=== PATIENT | male | born 1995 ===

== ENCOUNTER 2017-07-05 19:15 | Emergency (ER) | payer OTHER ==
[2017-07-05 19:28] VITALS: BP 153/65
[2017-07-05] MEDS ORDERED: Lidocaine 2% VISCOUS* 15 ML UDC PO ONE (19:50)
--- NOTE | 2017-07-05 20:03 | UC ---
Eros Harper Nilda, scribed for Kyung Jeffries MD on 07/05/17 at 1947 . Throat Pain/Nasal Brennen HPI - HPI Summary HPI Summary: This patient is a 22 year old M presenting to [facility] to r/o strep throat. Patient reports cold symptoms that began 1 week ago but resolved. Yesterday he began to have a sore throat. The patient rates the pain 3/10 in severity. Symptoms aggravated by swallowing, and alleviated by OTC medications. Patient reports minor STEVENS, difficulty swallowing, ear pressure, cough, and sinus congestion. He denies fever, N/V, rash, and burning with urination. Recent sick contact with girlfriend who was just diagnosed with strep throat. No analgesia today. No drooling. + po Patients medication reviewed this visit. - History of Current Complaint Chief Complaint: UCGeneralIllness Stated Complaint: SORE THROAT Hx Obtained From: Patient Onset/Duration: Sudden Onset, Lasting Days, Still Present Severity: Mild Pain Intensity: 3 Pain Scale Used: 0-10 Numeric Cough: Nonproductive Associated Signs & Symptoms: Positive: Other - minor STEVENS, ear pressure, cough, and sinus congestion. He denies fever, N/V, rash, and burning with urination. - Allergies/Home Medications Allergies/Adverse Reactions: Allergies Allergy/AdvReac Type Severity Reaction Status Date / Time salmon Allergy Rash Uncoded 07/05/17 19:24 Home Medications: Home Medications Amphetamine-Dextroamphetamine [Adderall 10 mg-] 20 mg PO DAILY 07/05/17 [ History Confirmed 07/05/17] PMH/Surg Hx/FS Hx/Imm Hx Previously Healthy: Yes Psychological History: Anxiety, Other Other Psychological History: ADD - Surgical History Surgical History: None - Family History Known Family History: Positive: Cardiac Disease - Social History Occupation: Student Lives: Dormitory/Roommates Alcohol Use: Occasionally Substance Use Type: Marijuana Smoking Status (MU): Former Smoker Review of Systems Constitutional: Other - negative fever Skin: Other - negative rash ENT: Sore Throat, Ear Ache, Sinus Congestion, Other - difficulty swallowing Respiratory: Cough Gastrointestinal: Other - negative N/V Genitourinary: Other - negative burning with urination Neurological: Headache All Other Systems Reviewed And Are Negative: Yes Physical Exam Triage Information Reviewed: Yes Appearance: Well-Appearing, No Pain Distress, Well-Nourished Vital Signs: Initial Vital Signs Temp 98 F 07/05/17 19:25 Pulse 76 07/05/17 19:25 Resp 16 07/05/17 19:25 BP 153/65 07/05/17 19:25 Pulse Ox 100 07/05/17 19:25 Vital Signs Reviewed: Yes Eye Exam: Normal Eyes: Positive: Conjunctiva Clear. Negative: Discharge ENT: Positive: Tonsillar swelling. Negative: TMs normal - scant fluid left TM no erythema, no retraction turbinates inflammed and boggy + PND uvula midline mild erythema no exudate no erythema, Tonsillar exudate Dental Exam: Normal Neck exam: Normal Neck: Positive: Supple, Nontender. Negative: No Lymphadenopathy - mild submandibular LA R>L Respiratory Exam: Normal Respiratory: Positive: Chest non-tender, Lungs clear, Normal breath sounds, No respiratory distress, No accessory muscle use Cardiovascular Exam: Normal Cardiovascular: Positive: RRR, No Murmur, Pulses Normal Abdominal Exam: Normal Abdomen Description: Positive: Nontender, No Organomegaly, Soft Bowel Sounds: Positive: Present Musculoskeletal Exam: Normal Musculoskeletal: Positive: Strength Intact Neurological Exam: Normal Neurological: Positive: Alert Psychological Exam: Normal Psychological: Positive: Normal Response To Family Re-Evaluation - Re-Evaluation First Eval Re-Evaluation Time: 20:01 Change: Improved - Pt accepting Rx lidocaine discussed secretion precaution gargle spit apap/motrin Throat Pain/Nasal Course/Dx - Course Assessment/Plan: This patient is a 22 year old M presenting to [facility] to r/o strep throat. Patient reports cold symptoms that began 1 week ago but resolved. Yesterday he began to have a sore throat. The patient rates the pain 3/10 in severity. Symptoms aggravated by swallowing, and alleviated by OTC medications. Patient reports minor STEVENS, difficulty swallowing, ear pressure, cough, and sinus congestion. He denies fever, N/V, rash, and burning with urination. Recent sick contact with girlfriend who was just diagnosed with strep throat. Patients medication reviewed this visit. + strep test. Pt given viscous lidocaine in UC. Pt is stable and will be D/C with a prescription for azithromycin and a diagnosis of strep throat. - Differential Dx/Diagnosis Provider Diagnoses: strep pharyngitis Discharge - Discharge Plan Condition: Stable Disposition: HOME Prescriptions: Azithromycin TAB* [Zithromax TAB (Z-ALEX) 250 mg #6 tabs] 2 tab PO .TODAY, THEN 1 DAILY #1 alex Lidocaine 2% VISCOUS* 10 ml MT Q6HR PRN #[id number] btl PRN Reason: throat pain Patient Education Materials: Strep Throat (ED) [facility] Additional Instructions: - Stay well hydrated. Drink plenty of non-alcoholic, non-caffinated beverages. - Gargle with warm, salt water 2-3 times a day -Take antibiotics as prescribed until gone -Cold beverages may be soothing to your throat - popsicles, apple sauce, jello - After you have been on antibiotics for 2 days - change your toothbrush and your pillowcase. These infections are spread by secretions - do NOT share eating or drinking utensils - clean items you share with other people such as cell phones, computer mouse, TV remote, computer tablets, etc - Alternate ibuprofen (Advil, Motrin) 600mg and Tylenol every 3 hours for pain or fever. Take with food. Do NOT take for more than 4-5 days. - Okay to gargle and spit with numbing medication as prescribed - Get plenty of restful sleep - Contact the health center, return here, or go to the emergency department with questions or concerns The documentation as recorded by the Eros marquez Nilda accurately reflects the service I personally performed and the decisions made by me, Kyung Jeffries MD.
== END 2017-07-05 20:15 | disposition home or self-care (01) ==
LOC: UCEAST 19:15
DX: J02.0 Streptococcal pharyngitis (principal); F41.9 Anxiety disorder, unspecified; F98.8 Other specified behavioral and emotional disorders with onset usually occurring in childhood and adolescence; F12.90 Cannabis use, unspecified, uncomplicated; Z87.891 Personal history of nicotine dependence
CPT/HCPCS: 87651; 99202; G0463

== ENCOUNTER 2018-04-21 12:45 | Emergency (ER) | payer OTHER ==
[2018-04-21 17:35] VITALS: BP 123/76
--- NOTE | 2018-04-22 08:14 | ED ---
Back Pain - HPI Summary HPI Summary: Patient states that approximately 3 months ago while running on a treadmill he felt a sudden pain to his right lower back. He kept running on the treadmill and states it dissipated fairly quickly. He now has been endorsing pain which has been intermittent over the past 3 months to his right low back radiating to the buttocks and the posterior right leg. This is not worse or better with positioning. He remains ambulatory. He has been taking ibuprofen with minimal relief. He has not seen a PCP or other provider for this in the past. Denies any trauma or injury otherwise. - History of Current Complaint Chief Complaint: EDBackInjuryPain Stated Complaint: BACK PAIN Time Seen by Provider: 04/21/18 14:52 Hx Obtained From: Patient Onset/Duration: Gradual Onset Onset/Duration: Still Present - months Timing: Constant Back Pain Location: Is Discrete @ - right sciatic pain Severity Initially: Moderate Severity Currently: Moderate Pain Intensity: 4 Pain Scale Used: 0-10 Numeric Character: Aching Aggravating Symptom(s): Lifting, Bending Alleviating Symptom(s): Rest, Position Associated Signs And Symptoms: Negative: Swelling, Redness, Bruising, Weakness, Numbness, Abdominal Pain, Bladder Incontinence, Bowel Incontinence, Weight Loss , Pain with Weight Bearing - Risk Factors AAA Risk Factors: Negative TAD Risk Factors: Negative Cauda Equina Risk Factors: Negative Epidural Abscess Risk Factors: Negative - Allergies/Home Medications Allergies/Adverse Reactions: Allergies Allergy/AdvReac Type Severity Reaction Status Date / Time salmon Allergy Rash Uncoded 04/21/18 13:08 PMH/Surg Hx/FS Hx/Imm Hx Previously Healthy: Yes - Immunization History Hx Pertussis Vaccination: No Immunizations Up to Date: Yes Infectious Disease History: No Infectious Disease History: Denies: Hx Clostridium Difficile, Hx Hepatitis, Hx Human Immunodeficiency Virus (HIV), Hx of Known/Suspected MRSA, Hx Shingles, Hx Tuberculosis, Hx Known/ Suspected VRE, Hx Known/Suspected VRSA, History Other Infectious Disease, Traveled Outside the [place] in Last 30 Days - Family History Known Family History: Positive: Cardiac Disease - Social History Occupation: Unemployed Lives: With Family Alcohol Use: Occasionally Hx Substance Use: Yes Substance Use Type: Reports: Marijuana Hx Tobacco Use: No Smoking Status (MU): Former Smoker Review of Systems - ROS Summary Review of Systems Summary: Now Negative: Fever, Chills, Fatigue, Skin Diaphoresis Negative: Palpitations, Chest Pain Negative: Shortness Of Breath, Cough Genitourinary: Negative Positive: no symptoms reported, see HPI Positive: Arthralgia. Negative: Myalgia Skin: Negative Neurological: Negative All Other Systems Reviewed And Are Negative: Yes Physical Exam Triage Information Reviewed: Yes Vital Signs On Initial Exam: Initial Vitals Temp Pulse Resp BP Pulse Ox 99 F 74 19 138/66 96 04/21/18 13:03 04/21/18 13:03 04/21/18 13:03 04/21/18 13:03 04/21/18 13:03 Vital Signs Reviewed: Yes Appearance: Positive: Well-Appearing, Well-Nourished Skin: Positive: Warm, Skin Color Reflects Adequate Perfusion Head/Face: Positive: Normal Head/Face Inspection Eyes: Positive: EOMI, BUD, Conjunctiva Clear Neck: Positive: Supple, No Lymphadenopathy Respiratory/Lung Sounds: Positive: Clear to Auscultation, Breath Sounds Present Cardiovascular: Positive: RRR, Pulses are Symmetrical in both Upper and Lower Extremities Musculoskeletal: Positive: Normal, Strength/ROM Intact, Pain @ - right lower back over sciatic notch. Negative: Edema Left, Edema Right Neurological: Positive: Speech Normal Psychiatric: Positive: Normal AVPU Assessment: Alert Diagnostics - Vital Signs Vital Signs Temp Pulse Resp BP Pulse Ox 04/21/18 17:33 98.2 F 73 12 123/76 96 04/21/18 13:03 99 F 74 19 138/66 96 - Laboratory Lab Statement: Any lab studies that have been ordered have been reviewed, and results considered in the medical decision making process. Back Pain Course/Dx - Course Course Of Treatment: On physical examination, there is tenderness over the right sciatic notch radiating to the right buttock. Denies any numbness or tingling. Denies any foot drop. Denies bladder or bowel dysfunction. No weakness noted in the lower extremities on physical exam. Patient is ambulating well. Discussed with patient gentle low back stretch exercises, moist heat, ibuprofen as well as Flexeril to deal with symptoms of sciatic nerve /lumbar radiculopathy pain. He agrees to try this as first line. He states if symptoms do not improve he will follow-up with his PCP. He is also encouraged massage. Deferred any imaging at this time as he does not have any spine tenderness. - Diagnoses Differential Diagnosis/HQI/PQRI: Positive: Strain, Sprain Provider Diagnoses: Sciatica Discharge - Sign-Out/Discharge Documenting (check all that apply): Patient Departure - Discharge Plan Condition: Stable Disposition: HOME Prescriptions: Cyclobenzaprine TAB* [Flexeril TAB*] 10 mg PO BID PRN #14 tab PRN Reason: Spasms Patient Education Materials: Sciatica (ED), Lumbar Radiculopathy (ED), Lower Back Exercises (ED) Referrals: No Primary Care Phys,NOPCP [Primary Care Provider] - Additional Instructions: Ibuprofen 600mg three times daily for discomfort- do not exceed 5 days Flexeril up to twice daily as needed for muscle pain Moist heat to the area several times per day Gentle stretches (as shown) Also use tennis ball in the sciatic notch while lying the floor Massage Chiropractor care may help - Billing Disposition and Condition Condition: STABLE Disposition: Home
== END 2018-04-21 17:33 | disposition home or self-care (01) ==
LOC: ED 12:45
DX: M54.41 Lumbago with sciatica, right side (principal); Z87.891 Personal history of nicotine dependence
CPT/HCPCS: 99282

== ENCOUNTER 2019-09-12 16:18 | Emergency (ER) | payer BC, OTHER ==
[2019-09-12 18:00] VITALS: BP 130/81
--- NOTE | 2019-09-12 18:21 | UC ---
Throat Pain/Nasal Brennen HPI - HPI Summary HPI Summary: 24-year-old male presents with complaints of 2 days of sore throat and headache. Denies fever, chills, nasal congestion, ear pain, dysphagia, cough, chest pain, shortness of breath, abdominal pain, nausea, or vomiting. - History of Current Complaint Chief Complaint: UCRespiratory Stated Complaint: THROAT PAIN Time Seen by Provider: 09/12/19 17:31 Hx Obtained From: Patient Pain Intensity: 0 - Allergies/Home Medications Allergies/Adverse Reactions: Allergies Allergy/AdvReac Type Severity Reaction Status Date / Time salmon Allergy Rash Uncoded 09/12/19 17:54 Home Medications: Home Medications NK [No Home Medications Reported] 09/12/19 [History Confirmed 09/12/19] PMH/Surg Hx/FS Hx/Imm Hx Previously Healthy: Yes - Denies significant PMH - Surgical History Surgical History: None - Family History Known Family History: Positive: Cardiac Disease - Social History Occupation: Student Lives: Dormitory/Roommates Alcohol Use: Occasionally Substance Use Type: Marijuana Smoking Status (MU): Former Smoker Review of Systems All Other Systems Reviewed And Are Negative: Yes Constitutional: Negative: Fever, Chills Eyes: Negative: Drainage, Eye Redness ENT: Positive: Sore Throat. Negative: Ear Ache, Nasal Discharge, Sinus Congestion, Sinus Pain/Tenderness Respiratory: Negative: Shortness Of Breath, Cough Cardiovascular: Negative: Palpitations, Chest Pain Gastrointestinal: Negative: Abdominal Pain, Vomiting, Nausea Genitourinary: Positive: Negative Musculoskeletal: Positive: Negative Neurological: Positive: Negative Is Patient Immunocompromised?: No Physical Exam - Summary Physical Exam Summary: GENERAL APPEARANCE: Well developed, well nourished, alert and cooperative, and appears to be in no acute distress. EYES: Conjunctiva clear. No drainage. EARS: External auditory canals and tympanic membranes clear, hearing grossly intact. NOSE: No nasal discharge. THROAT: Pharyngeal edema. No tonsilar inflammation, swelling, exudate, or lesions. Uvula midline. NECK: Neck supple, non-tender without lymphadenopathy. CARDIAC: Normal S1 and S2. No S3, S4 or murmurs. Rhythm is regular. There is no peripheral edema, cyanosis or pallor. Extremities are warm and well perfused. Capillary refill is less than 2 seconds. Peripheral pulses intact. LUNGS: Clear to auscultation without rales, rhonchi, wheezing or diminished breath sounds. ABDOMEN: Positive bowel sounds. Soft, nondistended, nontender. No guarding or rebound. No masses or hepatosplenomegally. MUSKULOSKELETAL: ROM intact to all extremities. No joint erythema or tenderness. Normal muscular development. Normal gait. SKIN: Skin normal color, texture and turgor with no lesions or eruptions. Triage Information Reviewed: Yes Vital Signs: Initial Vital Signs Temp 99.5 F 09/12/19 17:56 Pulse 85 09/12/19 17:56 Resp 18 09/12/19 17:56 BP 130/81 09/12/19 17:56 Pulse Ox 95 09/12/19 17:56 Vital Signs Reviewed: Yes Throat Pain/Nasal Course/Dx - Course Course Of Treatment: 24-year-old male presents with complaints of 2 days of sore throat and headache. Denies fever, chills, nasal congestion, ear pain, dysphagia, cough, chest pain, shortness of breath, abdominal pain, nausea, or vomiting. Afebrile. Vital signs stable. Patient had pharyngeal erythema without tonsillar swelling or exudate, no cervical lymphadenopathy, and remainder of exam was unremarkable. Rapid strep test was negative. Reviewed results with the patient. Recommending symptomatic treatment for viral pharyngitis. [facility] if symptoms are not improving. Anticipatory guidance warning symptoms are reviewed with the patient. Verbalizes understanding and agrees to plan of care. - Differential Dx/Diagnosis Differential Diagnosis/HQI/PQRI: Mononucleosis, Peritonsillar Abscess, Pharyngitis, Tonsillitis, URI Provider Diagnosis: Viral pharyngitis Discharge ED - Sign-Out/Discharge Documenting (check all that apply): Patient Departure All imaging exams completed and their final reports reviewed: No Studies - Discharge Plan Condition: Stable Disposition: HOME Patient Education Materials: Pharyngitis (ED) Referrals: No Primary Care Phys,NOPCP [Primary Care Provider] - Additional Instructions: Your rapid strep test in the clinic today was negative. Your symptoms are likely from a viral infection. Viral infections do not respond to antibiotics and are limited to the treatment of symptoms. Viral infections typically run their course in 7-10 days. Drink plenty of fluids to avoid dehydration especially if you are running any fever. Use salt water gargles several times a day. Take over the counter acetaminophen (Tylenol) or ibuprofen (Advil, Motrin) according to directions as needed for pain or fever. You may also use Chloraseptic spray or Cepacol lonzenges according to directions which contain a numbing medication and can provide some temporary relief from your sore throat. Return here or follow up with the [facility] in 7 days if symptoms persist. Seek immediate medical attention in the emergency room if you have fever greater than 100.5 F despite taking acetaminophen or ibuprofen, are unable to swallow or develop drooling, are unable to open your mouth fully, are unable to eat or drink, have pain that is not relieved with over the counter pain medication, or have any difficulty breathing. - Billing Disposition and Condition Condition: STABLE Disposition: Home
== END 2019-09-12 18:35 | disposition home or self-care (01) ==
LOC: UCEAST 16:18
DX: J02.9 Acute pharyngitis, unspecified (principal); Z91.013 Allergy to seafood; Z87.891 Personal history of nicotine dependence
CPT/HCPCS: 87651; 99211; G0463